=== PATIENT | female | born 1930 | race Caucasian/White ===

== ENCOUNTER 2016-08-14 05:49 | Inpatient (IN) | payer MEDICARE, MEDICAID ==
[~2016-08-14] VITALS: Ht 170.2 cm; Wt 51.4 kg
[~2016-08-14 05:49] MED LIST: AMLO1CAP3 PO; AMLO5TAB2 PO; ASPI-515 PO; ATOR80TA75 PO; AZIT250T89 PO; BENZ100C4 PO; CITA10TA4 PO; CITA10TA8; ENOX60SY4 SQ; FAMO40OR2 PO; GABA300C10 PO; HUM100VI6 INJ; HUM100VI6 SQ; HYDR1TAB12 PO; INSU100I18 SQ-INSULIN; INSU100I28 SQ-INSULIN; INSU100V13 INJ; INSULIN 70/30; LEVO500T33 PO; LEVO500T8 PO; LISI-167 PO; LOSA100T2 PO; LOSA100T6 PO; LOSA50TA2 PO; METO25TA2; METO25TA35 PO; OXYC-302; POTA20PA8 PO; POTA20TA14 PO; POTA20TA6 PO; SENN1TAB7 PO; SENN8.6T98 PO; SIMV20TA PO; SULF1TAB3 PO; WARF4TAB PO; WARF6TAB
[2016-08-14] MEDS ORDERED: ENALAPRILAT 1.25 MG/ML, 2ML ONE (06:24)
[2016-08-14] MEDS ORDERED: SODIUM CHLORIDE FLUSH 10ML SYR IVF ONE (06:30)
[2016-08-14] MEDS ORDERED: LIDOCAINE 1%-EPI 1:100K, 20ML INFIL ONE (06:30)
[2016-08-14] MEDS ORDERED: ENALAPRILAT 1.25 MG/ML, 2ML IV ONE (06:30)
[2016-08-14 06:57] LABS: BLOOD UREA NITROGEN 12 mg/dL (7-18)
[2016-08-14] MEDS ORDERED: LIDOCAINE 1%, 20ML ONE (06:58)
[2016-08-14] MEDS ORDERED: LABETALOL 20 MG/4 ML ONE (06:59)
[2016-08-14] MEDS ORDERED: LIDOCAINE 1%, 20ML INFIL ONE (07:00)
[2016-08-14] MEDS ORDERED: LABETALOL 20 MG/4 ML IVPush ONE (07:00)
[2016-08-14 07:02] LABS: ASPARTATE AMINO TRANSFERASE 104 U/L (15-37)
[2016-08-14 07:04] LABS: IS PT STATUS REG ER OR PRE ER? YES
[2016-08-14] MEDS ORDERED: MORPHINE SULFATE 4 MG/ML, 1ML IVPush ONE (07:30)
[2016-08-14] MEDS ORDERED: AZITHROMYCIN 500 MG in SODIUM CHLORIDE 0.9% 250 ML IV ONE (07:30)
[2016-08-14] MEDS ORDERED: CEFTRIAXONE PMX 1GM/50ML 50 ML IV ONE (07:30)
[2016-08-14] MEDS ORDERED: MORPHINE SULFATE 4 MG/ML, 1ML ONE ×2 (07:31→07:37)
[2016-08-14] MEDS ORDERED: CEFTRIAXONE PMX 1GM/50ML 50 ML ONE (07:31)
[2016-08-14] MEDS ORDERED: GUAIFENESIN/DM 200-20MG, 10ML UDC PO PRN (12:30)
[2016-08-14] MEDS ORDERED: ONDANSETRON ODT 4 MG PO PRN (12:30)
[2016-08-14] MEDS ORDERED: ACETAMINOPHEN 325 MG TABLET PO PRN (12:30)
[2016-08-14] MEDS ORDERED: INSULIN ASPART 100 UNITS/ML, PEN SQ-INSULIN PRN (12:30)
[2016-08-14] MEDS: ENOXAPARIN 40 MG/0.4 ML SQ SCH (12:49)
[2016-08-14 12:53] VITALS: BP 116/58
[2016-08-14] MEDS: GABAPENTIN 300 MG CAPSULE PO SCH ×2 (16:31→20:58)
[2016-08-14] MEDS: OXYcodone/APAP 5/325MG TABLET PO PRN (16:31)
[2016-08-14 18:29] VITALS: BP 130/61
[2016-08-14] MEDS: ATORVASTATIN 80 MG TABLET PO SCH (20:58)
[2016-08-14] MEDS: METOPROLOL TARTRATE 25 MG TABLET PO SCH (21:28)
[2016-08-14] MEDS: INSULIN DETEMIR 100 UNITS/ML, PEN SQ-INSULIN SCH (21:28)
[2016-08-15 01:45] VITALS: BP 169/70
[2016-08-15] MEDS: OXYcodone/APAP 5/325MG TABLET PO PRN ×3 (04:20→19:29)
[2016-08-15 06:55] VITALS: BP 139/61
[2016-08-15] MEDS: GABAPENTIN 300 MG CAPSULE PO SCH ×3 (08:33→22:06)
[2016-08-15] MEDS: POTASSIUM CHLORIDE 20 MEQ PACKET PO SCH (08:33)
[2016-08-15] MEDS: METOPROLOL TARTRATE 25 MG TABLET PO SCH ×2 (08:34→22:08)
[2016-08-15] MEDS ORDERED: CITALOPRAM 10 MG TABLET PO SCH (09:00)
[2016-08-15] MEDS: ENOXAPARIN 40 MG/0.4 ML SQ SCH (12:29)
[2016-08-15 13:56] VITALS: BP 130/52
[2016-08-15 21:33] VITALS: BP 128/81
[2016-08-15] MEDS: ATORVASTATIN 80 MG TABLET PO SCH (22:06)
[2016-08-15] MEDS: INSULIN DETEMIR 100 UNITS/ML, PEN SQ-INSULIN SCH (22:06)
[2016-08-16] MEDS: OXYcodone/APAP 5/325MG TABLET PO PRN ×4 (02:41→21:36)
[2016-08-16 04:50] VITALS: BP 163/67
[2016-08-16] MEDS ORDERED: INSULIN ASPART 100 UNITS/ML, PEN SQ-INSULIN PRN (07:00)
[2016-08-16 08:07] VITALS: BP 149/65
[2016-08-16] MEDS: POTASSIUM CHLORIDE 20 MEQ PACKET PO SCH (08:36)
[2016-08-16] MEDS: METOPROLOL TARTRATE 25 MG TABLET PO SCH ×2 (08:36→21:36)
[2016-08-16] MEDS: INSULIN DETEMIR 100 UNITS/ML, PEN SQ-INSULIN SCH ×2 (08:36→21:38)
[2016-08-16] MEDS: GABAPENTIN 300 MG CAPSULE PO SCH ×3 (08:36→21:36)
[2016-08-16] MEDS: ENOXAPARIN 40 MG/0.4 ML SQ SCH (12:30)
[2016-08-16] MEDS ORDERED: POLYETHYLENE GLYCOL 17 GM PACKET NG ONE (13:00)
[2016-08-16] MEDS ORDERED: OMNIPAQUE 350 MG/ML, 100ML BOTTLE ONE (14:21)
[2016-08-16] MEDS: CLINDAMYCIN PMX 600MG/50ML 50 ML IV SCH ×2 (15:16→22:00)
[2016-08-16 15:28] LABS: BLOOD UREA NITROGEN 24 mg/dL (7-18)
[2016-08-16 15:43] VITALS: BP 173/71
[2016-08-16] MEDS: ENALAPRILAT 1.25 MG/ML, 2ML IVPush PRN (17:30)
[2016-08-16 19:46] VITALS: BP 172/46
[2016-08-16] MEDS ORDERED: CITALOPRAM 10 MG TABLET PO SCH (21:00)
[2016-08-16] MEDS: ATORVASTATIN 80 MG TABLET PO SCH (21:37)
[2016-08-17 01:32] VITALS: BP 192/60
[2016-08-17] MEDS: ENALAPRILAT 1.25 MG/ML, 2ML IVPush PRN (01:44)
[2016-08-17 03:00] VITALS: BP 154/69
[2016-08-17] MEDS: OXYcodone/APAP 5/325MG TABLET PO PRN (05:55)
[2016-08-17] MEDS: CLINDAMYCIN PMX 600MG/50ML 50 ML IV SCH (06:34)
[2016-08-17 06:47] VITALS: BP 181/69
[2016-08-17] MEDS: POTASSIUM CHLORIDE 20 MEQ PACKET PO SCH (08:53)
[2016-08-17] MEDS: GABAPENTIN 300 MG CAPSULE PO SCH (08:53)
[2016-08-17] MEDS: METOPROLOL TARTRATE 25 MG TABLET PO SCH (08:53)
[2016-08-17] MEDS: INSULIN DETEMIR 100 UNITS/ML, PEN SQ-INSULIN SCH (08:54)
[2016-08-17] MEDS ORDERED: Oxycodone Hcl/Acetaminophen PO (08:58)
[2016-08-17] MEDS ORDERED: CLIN300C93 PO (08:58)
== END 2016-08-17 11:27 | disposition home or self-care (01) | DRG 291 ==
LOC: ED 06:23 → EDIP 08:30 → INTOOBSV 08:30 → 5SO 10:00 → OBSVTOIN 08-15 15:31 → 4EST 08-16 17:43
PROVIDERS: ADMIT Internal Medicine; ATTEND Family Medicine
PROC: 0HQ0XZZ Repair Scalp Skin, External Approach (ICD-10-PCS; principal; 2016-08-15)
DX: I11.0 Hypertensive heart disease with heart failure (principal); J69.0 Pneumonitis due to inhalation of food and vomit; B15.9 Hepatitis A without hepatic coma; D68.59 Other primary thrombophilia; B19.10 Unspecified viral hepatitis B without hepatic coma; S01.81XA Laceration without foreign body of other part of head, initial encounter; D64.9 Anemia, unspecified; E11.9 Type 2 diabetes mellitus without complications; E78.00 Pure hypercholesterolemia, unspecified; I25.10 Atherosclerotic heart disease of native coronary artery without angina pectoris; I50.9 Heart failure, unspecified; K21.9 Gastro-esophageal reflux disease without esophagitis; M43.12 Spondylolisthesis, cervical region; M47.9 Spondylosis, unspecified; Z66 Do not resuscitate; R13.10 Dysphagia, unspecified; W01.0XXA Fall on same level from slipping, tripping and stumbling without subsequent striking against object, initial encounter; Y92.009 Unspecified place in unspecified non-institutional (private) residence as the place of occurrence of the external cause; Z86.73 Personal history of transient ischemic attack (TIA), and cerebral infarction without residual deficits; Z87.891 Personal history of nicotine dependence; Z95.1 Presence of aortocoronary bypass graft; Z95.2 Presence of prosthetic heart valve; Z90.49 Acquired absence of other specified parts of digestive tract; Y93.89 Activity, other specified; Y99.8 Other external cause status
CPT/HCPCS: 12011; 36415; 70450; 70470; 71010; 72125; 74230; 76700; 80048; 80053; 80076; 82962; 84484; 85025; 85610; 85730; 86704; 86706; 86708; 86803; 87040; 87340; 93005; 96365; 96367; 96368; 96375; G0378; J0456; J0696; J1650; J1815; Q9967; J7050

== ENCOUNTER 2017-04-29 14:46 | Emergency (ER) | payer MEDICARE, MEDICAID ==
[~2017-04-29] VITALS: Ht 154.9 cm; Wt 70.0 kg
[~2017-04-29 14:46] MED LIST changes: +ATOR-2 PO; -ATOR80TA75 PO; +BENZ-17 PO; -BENZ100C4 PO; +CLIN300C8 PO; -LEVO500T33 PO; +LEVO500T47 PO; +Oxycodone Hcl/Acetaminophen PO; +POTA20PA25 PO; -POTA20PA8 PO; +SULF-169 PO; -SULF1TAB3 PO
[2017-04-29 15:49] LABS: BASOPHILS # (AUTO) 0.03 x10^3/uL (0-0.1); BASOPHILS % (AUTO) 0 % (0-1); EOSINOPHILS % (AUTO) 0 % (1-7); LYMPHOCYTES # (AUTO) 1.86 x10^3/uL (1-3.4); LYMPHOCYTES % (AUTO) 21 % (22-44); MD NO; MEAN CORPUSCULAR HEMOGLOBIN 29.6 pg (27.0-34.8); MEAN CORPUSCULAR VOLUME 89.5 fL (80-100); MEAN PLATELET VOLUME 9.1 fL (7.4-10.4); MONOCYTES # (AUTO) 0.62 x10^3/uL (0.2-0.8); MONOCYTES % (AUTO) 7 % (2-9); NEUTROPHILS % (AUTO) 72 % (42-75); PLATELET COUNT 307 x10^3/uL (130-400); RED CELL DISTRIBUTION WIDTH 14.5 % (9.6-15.2)
[2017-04-29 15:55] LABS: INTERNATIONAL NORMALIZED RATIO 2.67 (0.93-1.1); PROTHROMBIN TIME 27.2 Seconds (9.6-11.5)
[2017-04-29 15:58] LABS: ANION GAP 6 mmol/L (5-15); CALCIUM 8.7 mg/dL (8.5-10.1); CHLORIDE 101 mmol/L (98-107); CREATININE 0.85 mg/dL (0.55-1.02)
[2017-04-29 17:09] VITALS: BP 192/95
[2017-04-29] MEDS ORDERED: HYDROcodone/APAP 5/325 TABLET PO ONE (17:30)
[2017-04-29] MEDS ORDERED: HYDROcodone/APAP 5/325 TABLET ONE (17:33)
== END 2017-04-29 18:04 | disposition home or self-care (01) ==
LOC: ED 17:58
DX: S46.112A Strain of muscle, fascia and tendon of long head of biceps, left arm, initial encounter (principal); Z86.73 Personal history of transient ischemic attack (TIA), and cerebral infarction without residual deficits; E78.00 Pure hypercholesterolemia, unspecified; I25.10 Atherosclerotic heart disease of native coronary artery without angina pectoris; K21.9 Gastro-esophageal reflux disease without esophagitis; Z90.49 Acquired absence of other specified parts of digestive tract; Z95.1 Presence of aortocoronary bypass graft; Z95.2 Presence of prosthetic heart valve; X58.XXXA Exposure to other specified factors, initial encounter; Y93.89 Activity, other specified; Y99.8 Other external cause status; Y92.89 Other specified places as the place of occurrence of the external cause
CPT/HCPCS: 36415; 80048; 82040; 85025; 85610; 99285

== ENCOUNTER 2017-08-05 18:27 | Inpatient (IN) | payer MEDICARE, MEDICAID ==
[~2017-08-05] VITALS: Ht 160 cm; Wt 57.6 kg
[2017-08-05] MEDS ORDERED: ENALAPRILAT 1.25 MG/ML, 2ML IV ONE (19:00)
[2017-08-05] MEDS ORDERED: ENALAPRILAT 1.25 MG/ML, 2ML ONE (19:00)
[2017-08-05 19:12] LABS: BASOPHILS # (AUTO) 0.03 x10^3/uL (0-0.1); BASOPHILS % (AUTO) 0 % (0-1); EOSINOPHILS # (AUTO) 0.03 x10^3/uL (0-0.4); EOSINOPHILS % (AUTO) 0 % (1-7); LYMPHOCYTES # (AUTO) 2.13 x10^3/uL (1-3.4); LYMPHOCYTES % (AUTO) 24 % (22-44); MD NO; MEAN CORPUSCULAR HGB CONC 33.3 g/dL (32.4-35.8); MEAN CORPUSCULAR VOLUME 86.9 fL (80-100); MEAN PLATELET VOLUME 9.3 fL (7.4-10.4); MONOCYTES # (AUTO) 0.65 x10^3/uL (0.2-0.8); MONOCYTES % (AUTO) 7 % (2-9); NEUTROPHILS # (AUTO) 6.03 x10^3/uL (1.8-6.8); NEUTROPHILS % (AUTO) 68 % (42-75); PLATELET COUNT 330 x10^3/uL (130-400); RED CELL DISTRIBUTION WIDTH 14.6 % (9.6-15.2)
[2017-08-05 19:25] LABS: ALBUMIN 2.8 g/dL (3.4-5.0); ANION GAP 9 mmol/L (5-15); CALCIUM 8.1 mg/dL (8.5-10.1); CHLORIDE 98 mmol/L (98-107)
[2017-08-05 19:32] LABS: ALANINE AMINOTRANSFERASE 50 U/L (12-78); ALKALINE PHOSPHATASE 141 U/L (45-117); BILIRUBIN,TOTAL 0.3 mg/dL (0.2-1.0); TOTAL PROTEIN 7.8 g/dL (6.4-8.2); TROPONIN I < 0.015 ng/mL (0.000-0.045)
[2017-08-05 19:41] LABS: INTERNATIONAL NORMALIZED RATIO 3.92 (0.93-1.1); PROTHROMBIN TIME 39.3 Seconds (9.6-11.5)
[2017-08-05] MEDS ORDERED: LABETALOL 5MG/ML, 20ML ONE (20:23)
[2017-08-05] MEDS ORDERED: LABETALOL 5MG/ML, 20ML IVPush ONE (20:30)
[2017-08-05] MEDS ORDERED: ONDANSETRON ODT 4 MG PO PRN (21:30)
[2017-08-05] MEDS ORDERED: POLYETHYLENE GLYCOL 17 GM PACKET PO PRN (21:30)
[2017-08-05] MEDS ORDERED: BISACODYL 10 MG SUPP PR PRN (21:30)
[2017-08-05] MEDS ORDERED: OXYcodone/APAP 5/325MG TABLET PO PRN (21:30)
[2017-08-05] MEDS ORDERED: TEMPLATE NON-FORMULARY MED. (Warfarin Sodium** (Coumadin**) 6 MG) PO SCH (21:30)
[2017-08-05] MEDS ORDERED: hydrALAzine 20 MG/ML, 1ML IV PRN (22:00)
[2017-08-05 22:24] LABS: HEMOGLOBIN A1C 10.7 % (4.2-6.3)
[2017-08-05 23:31] VITALS: BP 196/79
[2017-08-05] MEDS: ATORVASTATIN 80 MG TABLET PO SCH (23:35)
[2017-08-05] MEDS: GABAPENTIN 300 MG CAPSULE PO SCH (23:35)
[2017-08-05] MEDS: SODIUM CHLORIDE FLUSH 10ML SYR IVF SCH (23:36)
[2017-08-05] MEDS: LISINOPRIL 10 MG TABLET PO SCH (23:36)
[2017-08-05] MEDS: METOPROLOL TARTRATE 25 MG TABLET PO SCH (23:36)
[2017-08-06] VITALS (9 sets, daily range): BP systolic 119–203; BP diastolic 61–83
[2017-08-06] MEDS: INSULIN GLARGINE 100 UNITS/ML, PEN SQ-INSULIN SCH ×3 (00:23→22:18)
[2017-08-06] MEDS: INSULIN LISPRO 100 UNITS/ML, PEN SQ-INSULIN SCH ×5 (00:24→22:17)
[2017-08-06 05:24] LABS: INTERNATIONAL NORMALIZED RATIO 3.02 (0.93-1.1); PROTHROMBIN TIME 30.4 Seconds (9.6-11.5)
[2017-08-06 05:25] LABS: BASOPHILS # (AUTO) 0.01 x10^3/uL (0-0.1); BASOPHILS % (AUTO) 0 % (0-1); EOSINOPHILS # (AUTO) 0.01 x10^3/uL (0-0.4); EOSINOPHILS % (AUTO) 0 % (1-7); LYMPHOCYTES # (AUTO) 2.89 x10^3/uL (1-3.4); LYMPHOCYTES % (AUTO) 28 % (22-44); MD NO; MEAN CORPUSCULAR HEMOGLOBIN 28.9 pg (27.0-34.8); MEAN CORPUSCULAR HGB CONC 33.4 g/dL (32.4-35.8); MEAN CORPUSCULAR VOLUME 86.5 fL (80-100); MEAN PLATELET VOLUME 9.3 fL (7.4-10.4); MONOCYTES # (AUTO) 0.63 x10^3/uL (0.2-0.8); MONOCYTES % (AUTO) 6 % (2-9); NEUTROPHILS # (AUTO) 6.82 x10^3/uL (1.8-6.8); NEUTROPHILS % (AUTO) 66 % (42-75); PLATELET COUNT 327 x10^3/uL (130-400); RED BLOOD COUNT 4.01 x10^6/uL (3.82-5.3); RED CELL DISTRIBUTION WIDTH 14.5 % (9.6-15.2)
[2017-08-06 05:33] LABS: CHLORIDE 103 mmol/L (98-107)
[2017-08-06 05:44] LABS: ALANINE AMINOTRANSFERASE 46 U/L (12-78); ALBUMIN 2.7 g/dL (3.4-5.0); ALKALINE PHOSPHATASE 133 U/L (45-117); ANION GAP 7 mmol/L (5-15); BILIRUBIN,TOTAL 0.5 mg/dL (0.2-1.0); CALCIUM 8.4 mg/dL (8.5-10.1); CREATININE 0.91 mg/dL (0.55-1.02); TOTAL PROTEIN 7.3 g/dL (6.4-8.2)
[2017-08-06] MEDS: SENNA/DOCUSATE TABLET PO SCH (09:00)
[2017-08-06] MEDS: LOSARTAN 50MG TABLET PO SCH (10:27)
[2017-08-06] MEDS: CITALOPRAM 10 MG TABLET PO SCH (10:27)
[2017-08-06] MEDS: ACETAMINOPHEN 325 MG TABLET PO PRN (10:27)
[2017-08-06] MEDS: GABAPENTIN 300 MG CAPSULE PO SCH ×3 (10:27→22:16)
[2017-08-06] MEDS: POTASSIUM CHLORIDE 20 MEQ PACKET PO SCH (10:27)
[2017-08-06] MEDS: LISINOPRIL 10 MG TABLET PO SCH (10:27)
[2017-08-06] MEDS: METOPROLOL TARTRATE 25 MG TABLET PO SCH ×2 (10:32→22:16)
[2017-08-06 11:55] LABS: TROPONIN I < 0.015 ng/mL (0.000-0.045)
[2017-08-06] MEDS: SODIUM CHLORIDE FLUSH 10ML SYR IVF SCH ×2 (12:36→22:16)
[2017-08-06] MEDS ORDERED: WARFARIN 3 MG TABLET PO-COUM SCH (18:00)
[2017-08-06] MEDS: ATORVASTATIN 80 MG TABLET PO SCH (22:15)
[2017-08-07] MEDS ORDERED: DIPHENHYDRAMINE 50 MG CAPSULE PO ONE
[2017-08-07 03:49] VITALS: BP 159/69
[2017-08-07 05:13] LABS: BASOPHILS # (AUTO) 0.03 x10^3/uL (0-0.1); BASOPHILS % (AUTO) 0 % (0-1); EOSINOPHILS # (AUTO) 0.01 x10^3/uL (0-0.4); EOSINOPHILS % (AUTO) 0 % (1-7); LYMPHOCYTES # (AUTO) 2.65 x10^3/uL (1-3.4); LYMPHOCYTES % (AUTO) 32 % (22-44); MD NO; MEAN CORPUSCULAR HEMOGLOBIN 28.2 pg (27.0-34.8); MEAN CORPUSCULAR HGB CONC 32.3 g/dL (32.4-35.8); MEAN PLATELET VOLUME 9.4 fL (7.4-10.4); MONOCYTES # (AUTO) 0.72 x10^3/uL (0.2-0.8); MONOCYTES % (AUTO) 9 % (2-9); NEUTROPHILS # (AUTO) 5.02 x10^3/uL (1.8-6.8); NEUTROPHILS % (AUTO) 60 % (42-75); PLATELET COUNT 306 x10^3/uL (130-400); RED BLOOD COUNT 3.85 x10^6/uL (3.82-5.3); RED CELL DISTRIBUTION WIDTH 14.9 % (9.6-15.2)
[2017-08-07 05:17] LABS: INTERNATIONAL NORMALIZED RATIO 2.55 (0.93-1.1); PROTHROMBIN TIME 25.8 Seconds (9.6-11.5)
[2017-08-07 05:20] LABS: ALBUMIN 2.5 g/dL (3.4-5.0); ANION GAP 6 mmol/L (5-15); CALCIUM 8.2 mg/dL (8.5-10.1); CHLORIDE 104 mmol/L (98-107)
[2017-08-07 05:24] LABS: ALANINE AMINOTRANSFERASE 41 U/L (12-78); ALKALINE PHOSPHATASE 119 U/L (45-117); BILIRUBIN,TOTAL 0.5 mg/dL (0.2-1.0); CREATININE 0.84 mg/dL (0.55-1.02); TOTAL PROTEIN 6.9 g/dL (6.4-8.2)
[2017-08-07 06:31] VITALS: BP 155/62
[2017-08-07] MEDS: INSULIN LISPRO 100 UNITS/ML, PEN SQ-INSULIN SCH ×4 (07:00→20:31)
[2017-08-07 07:45] VITALS: BP 179/68
[2017-08-07] MEDS: SODIUM CHLORIDE FLUSH 10ML SYR IVF SCH ×2 (08:03→20:56)
[2017-08-07] MEDS: POTASSIUM CHLORIDE 20 MEQ PACKET PO SCH (08:04)
[2017-08-07] MEDS: CITALOPRAM 10 MG TABLET PO SCH (08:04)
[2017-08-07] MEDS: SENNA/DOCUSATE TABLET PO SCH (08:04)
[2017-08-07] MEDS: GABAPENTIN 300 MG CAPSULE PO SCH ×3 (08:05→20:30)
[2017-08-07] MEDS: LISINOPRIL 10 MG TABLET PO SCH (08:05)
[2017-08-07] MEDS: METOPROLOL TARTRATE 25 MG TABLET PO SCH ×2 (08:05→20:30)
[2017-08-07] MEDS: LOSARTAN 50MG TABLET PO SCH (08:05)
[2017-08-07] MEDS: INSULIN GLARGINE 100 UNITS/ML, PEN SQ-INSULIN SCH ×2 (08:08→20:31)
[2017-08-07 09:11] VITALS: BP 184/70
[2017-08-07 15:00] VITALS: BP 168/92
[2017-08-07] MEDS: ACETAMINOPHEN 325 MG TABLET PO PRN (17:52)
[2017-08-07] MEDS ORDERED: WARFARIN 3 MG TABLET PO-COUM ONE (18:00)
[2017-08-07 19:40] VITALS: BP 182/72
[2017-08-07] MEDS ORDERED: DIPHENHYDRAMINE 50 MG CAPSULE PO PRN (20:00)
[2017-08-07] MEDS: ATORVASTATIN 80 MG TABLET PO SCH (20:30)
[2017-08-08] MEDS ORDERED: DEXTROSE 4 GM TAB.CHEW PO PRN (03:30)
[2017-08-08] MEDS ORDERED: GLUCAGON 1 MG IM PRN (03:30)
[2017-08-08] MEDS ORDERED: DEXTROSE 50%, 50ML SYRINGE IVPush PRN (03:30)
[2017-08-08 05:36] VITALS: BP 146/61
[2017-08-08 05:46] LABS: INTERNATIONAL NORMALIZED RATIO 2.71 (0.93-1.1); PROTHROMBIN TIME 27.6 Seconds (9.6-11.5)
[2017-08-08 07:31] VITALS: BP 142/63
[2017-08-08] MEDS: POTASSIUM CHLORIDE 20 MEQ PACKET PO SCH (09:00)
[2017-08-08] MEDS: SODIUM CHLORIDE FLUSH 10ML SYR IVF SCH (09:00)
[2017-08-08] MEDS: CITALOPRAM 10 MG TABLET PO SCH (09:00)
[2017-08-08] MEDS ORDERED: AMLO5TAB2 PO (09:48)
[2017-08-08] MEDS ORDERED: METO25TA35 PO (09:48)
[2017-08-08] MEDS: INSULIN GLARGINE 100 UNITS/ML, PEN SQ-INSULIN SCH (10:00)
[2017-08-08] MEDS: INSULIN LISPRO 100 UNITS/ML, PEN SQ-INSULIN SCH ×2 (10:00→11:57)
[2017-08-08] MEDS: LOSARTAN 50MG TABLET PO SCH (11:14)
[2017-08-08] MEDS: GABAPENTIN 300 MG CAPSULE PO SCH (11:14)
[2017-08-08] MEDS: SENNA/DOCUSATE TABLET PO SCH (11:14)
[2017-08-08] MEDS: LISINOPRIL 10 MG TABLET PO SCH (11:15)
[2017-08-08] MEDS: METOPROLOL TARTRATE 25 MG TABLET PO SCH (11:16)
[2017-08-08] MEDS ORDERED: WARFARIN 3 MG TABLET PO-COUM ONE (18:00)
== END 2017-08-08 14:50 | disposition home or self-care (01) | DRG 78 ==
LOC: ED 22:46 → 4WST 23:06
PROVIDERS: ADMIT Hospitalist; ATTEND Hospitalist
DX: I67.4 Hypertensive encephalopathy (principal); E87.1 Hypo-osmolality and hyponatremia; E44.0 Moderate protein-calorie malnutrition; J96.10 Chronic respiratory failure, unspecified whether with hypoxia or hypercapnia; I11.0 Hypertensive heart disease with heart failure; I48.91 Unspecified atrial fibrillation; I50.9 Heart failure, unspecified; Z99.81 Dependence on supplemental oxygen; E11.9 Type 2 diabetes mellitus without complications; I16.9 Hypertensive crisis, unspecified; E78.00 Pure hypercholesterolemia, unspecified; I25.10 Atherosclerotic heart disease of native coronary artery without angina pectoris; K21.9 Gastro-esophageal reflux disease without esophagitis; Z66 Do not resuscitate; Z79.4 Long term (current) use of insulin; Z86.73 Personal history of transient ischemic attack (TIA), and cerebral infarction without residual deficits; Z87.891 Personal history of nicotine dependence; Z95.1 Presence of aortocoronary bypass graft; Z95.2 Presence of prosthetic heart valve; Z68.22 Body mass index [BMI] 22.0-22.9, adult
CPT/HCPCS: 36415; 70450; 71045; 80053; 82962; 83036; 84484; 85025; 85610; 93005; 96374; 96375; J0360; J1815

== ENCOUNTER 2017-10-28 13:34 | Emergency (ER) | payer MEDICARE, MEDICAID ==
[~2017-10-28] VITALS: Ht 154.9 cm; Wt 70.0 kg
[2017-10-28] MEDS ORDERED: ACETAMINOPHEN 500 MG TABLET PO ONE (14:30)
[2017-10-28] MEDS ORDERED: NAPROXEN 500 MG TABLET PO ONE (14:30)
[2017-10-28] MEDS ORDERED: ACETAMINOPHEN 500 MG TABLET ONE (14:32)
[2017-10-28 14:33] LABS: BASOPHILS # (AUTO) 0.07 x10^3/uL (0-0.1); BASOPHILS % (AUTO) 1 % (0-1); EOSINOPHILS % (AUTO) 0 % (1-7); LYMPHOCYTES # (AUTO) 2.14 x10^3/uL (1-3.4); LYMPHOCYTES % (AUTO) 24 % (22-44); MD NO; MEAN CORPUSCULAR HEMOGLOBIN 29.1 pg (27.0-34.8); MEAN CORPUSCULAR HGB CONC 32.6 g/dL (32.4-35.8); MEAN CORPUSCULAR VOLUME 89.3 fL (80-100); MEAN PLATELET VOLUME 9.9 fL (7.4-10.4); MONOCYTES # (AUTO) 0.71 x10^3/uL (0.2-0.8); MONOCYTES % (AUTO) 8 % (2-9); NEUTROPHILS # (AUTO) 5.88 x10^3/uL (1.8-6.8); NEUTROPHILS % (AUTO) 67 % (42-75); PLATELET COUNT 323 x10^3/uL (130-400); RED BLOOD COUNT 4.02 x10^6/uL (3.82-5.3); RED CELL DISTRIBUTION WIDTH 14.9 % (9.6-15.2)
[2017-10-28] MEDS ORDERED: NAPROXEN 500 MG TABLET ONE (14:33)
[2017-10-28 14:42] LABS: ALBUMIN 2.8 g/dL (3.4-5.0); ANION GAP 5 mmol/L (5-15); C-REACTIVE PROTEIN, QUANT 0.16 mg/dL (0.02-0.49); CALCIUM 8.6 mg/dL (8.5-10.1); CHLORIDE 103 mmol/L (98-107); CREATININE 1.14 mg/dL (0.55-1.02)
[2017-10-28] MEDS ORDERED: ENALAPRIL 5MG TABLET PO ONE (17:00)
[2017-10-28 17:24] VITALS: BP 163/81
== END 2017-10-28 17:49 | disposition home or self-care (01) ==
LOC: ED 16:37
DX: M25.532 Pain in left wrist (principal); I10 Essential (primary) hypertension
CPT/HCPCS: 36415; 80048; 82040; 85025; 86140; 99285